=== PATIENT | female | born 1940 | race Caucasian/White ===

== ENCOUNTER 2017-01-11 12:38 | Inpatient (IN) | payer MEDICARE, MEDICAID ==
[~2017-01-11] VITALS: Ht 162.6 cm; Wt 56.7 kg
[~2017-01-11 12:38] MED LIST: AMOX1TAB12 PO; ASPI-621 PO; GLYB1TAB12 PO; INSU100I28 SQ-INSULIN; METF500T PO
[2017-01-11] MEDS ORDERED: SODIUM CHLORIDE 0.9% 1,000ML IVBOLUS ONE ×2 (13:00→15:00)
[2017-01-11] MEDS ORDERED: SODIUM CHLORIDE FLUSH 10ML SYR IVF ONE (13:00)
[2017-01-11] MEDS ORDERED: PLEASE ENTER HEIGHT AND WEIGHT MC SCH (13:00)
[2017-01-11 14:14] LABS: ASPARTATE AMINO TRANSFERASE 5 U/L (15-37); BLOOD UREA NITROGEN 26 mg/dL (7-18)
[2017-01-11 14:21] LABS: IS PT STATUS REG ER OR PRE ER? YES
[2017-01-11] MEDS ORDERED: INSULIN REGULAR 100 UNITS/ML, 3ML VIAL ONE (14:46)
[2017-01-11] MEDS ORDERED: SODIUM CHLORIDE 0.9% 1,000 ML IV ONE (14:51)
[2017-01-11] MEDS ORDERED: SODIUM CHLORIDE FLUSH 10ML SYR IVF PRN (15:00)
[2017-01-11] MEDS ORDERED: morphine SULFATE 10 MG/ML, 1ML IVPush PRN (16:00)
[2017-01-11] MEDS ORDERED: ONDANSETRON 2MG/ML, 2ML IVPush PRN (16:00)
[2017-01-11] MEDS ORDERED: POLYETHYLENE GLYCOL 17 GM PACKET PO PRN (16:00)
[2017-01-11] MEDS ORDERED: hydrALAzine 20 MG/ML, 1ML IVPush PRN (16:00)
[2017-01-11] MEDS ORDERED: ENALAPRILAT 1.25 MG/ML, 2ML IVPush PRN (16:00)
[2017-01-11] MEDS ORDERED: INSULIN REGULAR 100 UNITS/ML, 3ML VIAL SQ-INSULIN SCH (16:00)
[2017-01-11] MEDS ORDERED: HEPARIN 5,000 UNITS/ML, 1ML ONE (16:42)
[2017-01-11] MEDS: HEPARIN 5,000 UNITS/ML, 1ML SQ SCH (16:46)
[2017-01-11 18:00] VITALS: BP 125/76
[2017-01-11] MEDS: SODIUM CHLORIDE 0.9% 1,000 ML IV SCH (18:22)
[2017-01-11 19:10] VITALS: BP 124/69
[2017-01-11] MEDS ORDERED: PNEUMOCOCCAL 23 VACCINE IM-VACC ONE (19:30)
[2017-01-11] MEDS: INSULIN DETEMIR 100 UNITS/ML, PEN SQ-INSULIN SCH (20:50)
[2017-01-11] MEDS: INSULIN ASPART 100 UNITS/ML, PEN SQ-INSULIN SCH ×2 (20:50→20:55)
[2017-01-12] MEDS: HEPARIN 5,000 UNITS/ML, 1ML SQ SCH ×3 (00:33→15:59)
[2017-01-12] MEDS: SODIUM CHLORIDE 0.9% 1,000 ML IV SCH ×3 (00:35→15:59)
[2017-01-12] MEDS: INSULIN DETEMIR 100 UNITS/ML, PEN SQ-INSULIN SCH ×2 (04:30→16:03)
[2017-01-12 04:51] VITALS: BP 99/66
[2017-01-12 05:16] LABS: BLOOD UREA NITROGEN 17 mg/dL (7-18)
[2017-01-12 05:19] LABS: ASPARTATE AMINO TRANSFERASE 14 U/L (15-37)
[2017-01-12 06:50] VITALS: BP 115/67
[2017-01-12] MEDS: SENNA/DOCUSATE TABLET PO SCH (09:20)
[2017-01-12] MEDS: ASPIRIN 81 MG TABLET EC PO SCH (09:20)
[2017-01-12] MEDS: INSULIN ASPART 100 UNITS/ML, PEN SQ-INSULIN SCH ×4 (09:21→21:40)
[2017-01-12] MEDS: CEPHALEXIN 250 MG CAPSULE PO SCH ×3 (11:08→21:36)
[2017-01-12 14:27] VITALS: BP 144/71
[2017-01-12] MEDS ORDERED: INSULIN DETEMIR 100 UNITS/ML, PEN SQ-INSULIN SCH (16:30)
[2017-01-12 19:45] VITALS: BP 150/68
[2017-01-13] MEDS: HEPARIN 5,000 UNITS/ML, 1ML SQ SCH ×3 (00:16→17:37)
[2017-01-13 01:40] VITALS: BP 133/56
[2017-01-13] MEDS: CEPHALEXIN 250 MG CAPSULE PO SCH ×4 (05:03→23:45)
[2017-01-13] MEDS: INSULIN DETEMIR 100 UNITS/ML, PEN SQ-INSULIN SCH ×2 (05:04→17:40)
[2017-01-13 05:30] LABS: BLOOD UREA NITROGEN 10 mg/dL (7-18)
[2017-01-13] MEDS: ASPIRIN 81 MG TABLET EC PO SCH (07:56)
[2017-01-13] MEDS: SENNA/DOCUSATE TABLET PO SCH (07:57)
[2017-01-13 08:00] VITALS: BP 149/79
[2017-01-13] MEDS: INSULIN ASPART 100 UNITS/ML, PEN SQ-INSULIN SCH ×4 (08:02→21:26)
[2017-01-13 14:00] VITALS: BP 147/74
[2017-01-13 19:52] VITALS: BP 147/87
[2017-01-13 21:19] VITALS: BP 149/82
[2017-01-13] MEDS: metFORMIN 500 MG TABLET PO SCH (21:24)
[2017-01-14] MEDS: HEPARIN 5,000 UNITS/ML, 1ML SQ SCH ×3 (02:52→16:42)
[2017-01-14] MEDS: INSULIN DETEMIR 100 UNITS/ML, PEN SQ-INSULIN SCH ×2 (04:29→16:42)
[2017-01-14] MEDS: CEPHALEXIN 250 MG CAPSULE PO SCH ×3 (05:17→16:41)
[2017-01-14 06:04] LABS: BLOOD UREA NITROGEN 13 mg/dL (7-18)
[2017-01-14 07:20] VITALS: BP 152/76
[2017-01-14] MEDS: INSULIN ASPART 100 UNITS/ML, PEN SQ-INSULIN SCH ×4 (08:38→23:07)
[2017-01-14] MEDS: metFORMIN 500 MG TABLET PO SCH ×2 (08:39→16:41)
[2017-01-14] MEDS: ASPIRIN 81 MG TABLET EC PO SCH (08:39)
[2017-01-14] MEDS: SENNA/DOCUSATE TABLET PO SCH (08:39)
[2017-01-14 12:38] VITALS: BP 129/71
[2017-01-14 19:28] VITALS: BP 134/65
[2017-01-15] MEDS: CEPHALEXIN 250 MG CAPSULE PO SCH ×4 (00:14→17:25)
[2017-01-15 01:19] VITALS: BP 141/73
[2017-01-15] MEDS: HEPARIN 5,000 UNITS/ML, 1ML SQ SCH ×3 (01:24→17:26)
[2017-01-15] MEDS: INSULIN DETEMIR 100 UNITS/ML, PEN SQ-INSULIN SCH ×2 (04:58→16:30)
[2017-01-15 07:39] VITALS: BP 121/62
[2017-01-15] MEDS: SENNA/DOCUSATE TABLET PO SCH (09:00)
[2017-01-15] MEDS: INSULIN ASPART 100 UNITS/ML, PEN SQ-INSULIN SCH ×4 (09:31→20:37)
[2017-01-15] MEDS: ASPIRIN 81 MG TABLET EC PO SCH (09:31)
[2017-01-15] MEDS: metFORMIN 500 MG TABLET PO SCH ×2 (09:31→17:25)
[2017-01-15] MEDS ORDERED: INSULIN DETEMIR 100 UNITS/ML, PEN SQ-INSULIN ONE (12:30)
[2017-01-15 14:11] VITALS: BP 128/73
[2017-01-15 19:04] VITALS: BP 127/74
[2017-01-16] MEDS: CEPHALEXIN 250 MG CAPSULE PO SCH ×4 (00:05→17:18)
[2017-01-16 02:38] VITALS: BP 128/76
[2017-01-16] MEDS: HEPARIN 5,000 UNITS/ML, 1ML SQ SCH ×3 (05:38→22:07)
[2017-01-16] MEDS: INSULIN DETEMIR 100 UNITS/ML, PEN SQ-INSULIN SCH ×2 (05:38→14:25)
[2017-01-16 05:55] LABS: BLOOD UREA NITROGEN 19 mg/dL (7-18)
[2017-01-16 07:42] VITALS: BP 136/75
[2017-01-16] MEDS: ASPIRIN 81 MG TABLET EC PO SCH (08:38)
[2017-01-16] MEDS: SENNA/DOCUSATE TABLET PO SCH (08:38)
[2017-01-16] MEDS: metFORMIN 500 MG TABLET PO SCH ×2 (08:39→17:19)
[2017-01-16] MEDS: INSULIN ASPART 100 UNITS/ML, PEN SQ-INSULIN SCH ×4 (08:39→22:09)
[2017-01-16 12:56] VITALS: BP 143/79
[2017-01-16 20:16] VITALS: BP 151/83
[2017-01-17] MEDS: CEPHALEXIN 250 MG CAPSULE PO SCH ×4 (01:01→17:03)
[2017-01-17 02:33] VITALS: BP 148/77
[2017-01-17] MEDS: INSULIN DETEMIR 100 UNITS/ML, PEN SQ-INSULIN SCH ×2 (04:40→16:00)
[2017-01-17] MEDS: HEPARIN 5,000 UNITS/ML, 1ML SQ SCH ×2 (05:50→17:03)
[2017-01-17] MEDS: INSULIN ASPART 100 UNITS/ML, PEN SQ-INSULIN SCH ×4 (07:00→20:30)
[2017-01-17 07:27] VITALS: BP 147/81
[2017-01-17] MEDS: SENNA/DOCUSATE TABLET PO SCH (08:25)
[2017-01-17] MEDS: metFORMIN 500 MG TABLET PO SCH ×2 (08:25→17:03)
[2017-01-17] MEDS: ASPIRIN 81 MG TABLET EC PO SCH (08:25)
[2017-01-17] MEDS: OXYcodone IR 5MG TABLET PO PRN (11:49)
[2017-01-17] MEDS ORDERED: MAGNESIUM HYDROXIDE 8%, 30ML UDC PO PRN (13:00)
[2017-01-17 13:48] VITALS: BP_SYST 128; BP_SYST 147; BP_DIAS 81; BP_DIAS 83
[2017-01-17 19:10] VITALS: BP 121/73
[2017-01-18] MEDS: HEPARIN 5,000 UNITS/ML, 1ML SQ SCH ×3 (00:20→16:45)
[2017-01-18] MEDS: CEPHALEXIN 250 MG CAPSULE PO SCH ×4 (00:20→20:44)
[2017-01-18 00:38] VITALS: BP 108/67
[2017-01-18] MEDS: SENNA/DOCUSATE TABLET PO SCH (08:11)
[2017-01-18] MEDS: OXYcodone IR 5MG TABLET PO PRN ×2 (08:11→16:54)
[2017-01-18] MEDS: metFORMIN 500 MG TABLET PO SCH ×2 (08:11→16:43)
[2017-01-18] MEDS: ASPIRIN 81 MG TABLET EC PO SCH (08:11)
[2017-01-18] MEDS: INSULIN ASPART 100 UNITS/ML, PEN SQ-INSULIN SCH ×4 (08:12→20:51)
[2017-01-18] MEDS: INSULIN DETEMIR 100 UNITS/ML, PEN SQ-INSULIN SCH ×2 (08:12→19:00)
[2017-01-18 08:20] VITALS: BP 138/82
[2017-01-18] MEDS ORDERED: MAALOX/HYOSCYAMINE/LIDOCAINE 45 ML BOTTLE PO ONE ×2 (11:30→12:30)
[2017-01-18] MEDS ORDERED: CALCIUM CARBONATE 500 MG TAB.CHEW PO PRN (11:30)
[2017-01-18 14:30] VITALS: BP 137/77
[2017-01-18] MEDS: BISACODYL 10 MG SUPP PR PRN (16:54)
[2017-01-18 19:33] VITALS: BP 118/65
[2017-01-18] MEDS ORDERED: ENALAPRILAT 1.25 MG/ML, 2ML IVPush PRN (19:53)
[2017-01-18] MEDS ORDERED: OXYcodone IR 5MG TABLET PO PRN (21:00)
[2017-01-19 00:52] VITALS: BP 117/70
[2017-01-19] MEDS: HEPARIN 5,000 UNITS/ML, 1ML SQ SCH ×3 (00:58→17:28)
[2017-01-19] MEDS: CEPHALEXIN 250 MG CAPSULE PO SCH ×2 (00:58→09:28)
[2017-01-19 05:51] LABS: BLOOD UREA NITROGEN 23 mg/dL (7-18)
[2017-01-19] MEDS: INSULIN DETEMIR 100 UNITS/ML, PEN SQ-INSULIN SCH ×3 (07:00→21:00)
[2017-01-19] MEDS: INSULIN ASPART 100 UNITS/ML, PEN SQ-INSULIN SCH ×4 (07:00→21:00)
[2017-01-19 07:16] VITALS: BP 105/63
[2017-01-19] MEDS: BISACODYL 10 MG SUPP PR SCH (09:00)
[2017-01-19] MEDS: metFORMIN 500 MG TABLET PO SCH ×2 (09:29→17:27)
[2017-01-19] MEDS: SENNA/DOCUSATE TABLET PO SCH (09:29)
[2017-01-19] MEDS: ASPIRIN 81 MG TABLET EC PO SCH (09:29)
[2017-01-19] MEDS ORDERED: INSULIN DETEMIR 100 UNITS/ML, PEN SQ-INSULIN SCH (14:00)
[2017-01-19 15:25] VITALS: BP 123/74
[2017-01-19] MEDS: BISACODYL 10 MG SUPP PR PRN (17:34)
[2017-01-19 19:33] VITALS: BP 112/68
[2017-01-20 01:19] VITALS: BP 101/59
[2017-01-20] MEDS: INSULIN ASPART 100 UNITS/ML, PEN SQ-INSULIN SCH ×4 (07:00→21:00)
[2017-01-20 07:36] VITALS: BP 127/82
[2017-01-20] MEDS: BISACODYL 10 MG SUPP PR SCH ×2 (09:00→11:54)
[2017-01-20] MEDS: SENNA/DOCUSATE TABLET PO SCH (09:48)
[2017-01-20] MEDS: HEPARIN 5,000 UNITS/ML, 1ML SQ SCH ×3 (09:48→17:39)
[2017-01-20] MEDS: metFORMIN 500 MG TABLET PO SCH ×2 (09:48→17:39)
[2017-01-20] MEDS: ASPIRIN 81 MG TABLET EC PO SCH (09:48)
[2017-01-20] MEDS: INSULIN DETEMIR 100 UNITS/ML, PEN SQ-INSULIN SCH ×2 (09:49→22:05)
[2017-01-20 13:26] VITALS: BP 128/75
[2017-01-20 19:50] VITALS: BP 114/63
[2017-01-21 01:51] VITALS: BP 109/60
[2017-01-21] MEDS: HEPARIN 5,000 UNITS/ML, 1ML SQ SCH ×3 (02:00→18:00)
[2017-01-21] MEDS: INSULIN ASPART 100 UNITS/ML, PEN SQ-INSULIN SCH ×4 (07:00→20:52)
[2017-01-21 07:25] VITALS: BP 129/71
[2017-01-21] MEDS: BISACODYL 10 MG SUPP PR SCH (09:00)
[2017-01-21] MEDS: metFORMIN 500 MG TABLET PO SCH ×2 (09:17→17:00)
[2017-01-21] MEDS: ASPIRIN 81 MG TABLET EC PO SCH (09:17)
[2017-01-21] MEDS: SENNA/DOCUSATE TABLET PO SCH (09:18)
[2017-01-21] MEDS: INSULIN DETEMIR 100 UNITS/ML, PEN SQ-INSULIN SCH ×2 (09:22→20:59)
[2017-01-21 14:16] VITALS: BP 126/79
[2017-01-21 19:13] VITALS: BP 134/82
[2017-01-22 01:32] VITALS: BP 127/78
[2017-01-22] MEDS: HEPARIN 5,000 UNITS/ML, 1ML SQ SCH ×3 (02:00→17:53)
[2017-01-22] MEDS: INSULIN ASPART 100 UNITS/ML, PEN SQ-INSULIN SCH ×4 (07:00→21:00)
[2017-01-22 07:17] VITALS: BP 118/72
[2017-01-22] MEDS: BISACODYL 10 MG SUPP PR SCH (09:00)
[2017-01-22] MEDS: SENNA/DOCUSATE TABLET PO SCH (09:21)
[2017-01-22] MEDS: metFORMIN 500 MG TABLET PO SCH ×2 (09:21→17:53)
[2017-01-22] MEDS: ASPIRIN 81 MG TABLET EC PO SCH (09:21)
[2017-01-22] MEDS: INSULIN DETEMIR 100 UNITS/ML, PEN SQ-INSULIN SCH ×2 (09:23→21:00)
[2017-01-22 13:50] VITALS: BP 171/87
[2017-01-22 13:51] VITALS: BP 129/74
[2017-01-22 19:01] VITALS: BP 122/71
[2017-01-23] MEDS: INSULIN ASPART 100 UNITS/ML, PEN SQ-INSULIN SCH ×5 (00:30→20:34)
[2017-01-23] MEDS: HEPARIN 5,000 UNITS/ML, 1ML SQ SCH ×3 (01:55→17:57)
[2017-01-23 02:49] VITALS: BP 117/72
[2017-01-23 04:49] LABS: BLOOD UREA NITROGEN 25 mg/dL (7-18)
[2017-01-23 07:06] VITALS: BP 138/79
[2017-01-23 07:44] VITALS: BP 128/83
[2017-01-23] MEDS: INSULIN DETEMIR 100 UNITS/ML, PEN SQ-INSULIN SCH ×2 (09:00→20:33)
[2017-01-23] MEDS: BISACODYL 10 MG SUPP PR SCH (09:00)
[2017-01-23 13:27] VITALS: BP 120/70
[2017-01-23] MEDS: metFORMIN 500 MG TABLET PO SCH ×2 (13:52→19:36)
[2017-01-23] MEDS: ASPIRIN 81 MG TABLET EC PO SCH (13:53)
[2017-01-23] MEDS: SENNA/DOCUSATE TABLET PO SCH (13:53)
[2017-01-23 19:25] VITALS: BP 127/66
[2017-01-23] MEDS ORDERED: ONDANSETRON ODT 4 MG ONE (19:35)
[2017-01-23] MEDS: ONDANSETRON ODT 4 MG PO PRN (19:39)
[2017-01-24] MEDS: HEPARIN 5,000 UNITS/ML, 1ML SQ SCH ×3 (01:07→17:22)
[2017-01-24 01:38] VITALS: BP 104/64
[2017-01-24 07:00] VITALS: BP 121/76
[2017-01-24] MEDS: INSULIN ASPART 100 UNITS/ML, PEN SQ-INSULIN SCH ×4 (07:00→20:30)
[2017-01-24] MEDS: metFORMIN 500 MG TABLET PO SCH ×2 (08:00→17:20)
[2017-01-24] MEDS: ASPIRIN 81 MG TABLET EC PO SCH (09:00)
[2017-01-24] MEDS: BISACODYL 10 MG SUPP PR SCH (09:00)
[2017-01-24] MEDS: SENNA/DOCUSATE TABLET PO SCH (09:00)
[2017-01-24] MEDS: INSULIN DETEMIR 100 UNITS/ML, PEN SQ-INSULIN SCH ×2 (09:00→20:37)
[2017-01-24 13:15] VITALS: BP 133/82
[2017-01-24 19:38] VITALS: BP 123/80
[2017-01-25 01:24] VITALS: BP 117/72
[2017-01-25] MEDS: HEPARIN 5,000 UNITS/ML, 1ML SQ SCH ×3 (01:31→18:00)
[2017-01-25 07:03] VITALS: BP 117/68
[2017-01-25] MEDS: INSULIN DETEMIR 100 UNITS/ML, PEN SQ-INSULIN SCH ×2 (08:54→20:40)
[2017-01-25] MEDS: INSULIN ASPART 100 UNITS/ML, PEN SQ-INSULIN SCH ×5 (08:55→20:40)
[2017-01-25] MEDS: SENNA/DOCUSATE TABLET PO SCH (08:55)
[2017-01-25] MEDS: ASPIRIN 81 MG TABLET EC PO SCH (08:55)
[2017-01-25] MEDS: metFORMIN 500 MG TABLET PO SCH ×2 (08:56→16:58)
[2017-01-25] MEDS: BISACODYL 10 MG SUPP PR SCH (08:57)
[2017-01-25 12:25] VITALS: BP 121/69
[2017-01-25 19:02] VITALS: BP 123/74
[2017-01-26 01:08] VITALS: BP 130/74
[2017-01-26] MEDS: HEPARIN 5,000 UNITS/ML, 1ML SQ SCH ×3 (01:54→16:19)
[2017-01-26 05:57] LABS: ASPARTATE AMINO TRANSFERASE 11 U/L (15-37); BLOOD UREA NITROGEN 21 mg/dL (7-18)
[2017-01-26] MEDS: INSULIN ASPART 100 UNITS/ML, PEN SQ-INSULIN SCH ×4 (07:00→20:06)
[2017-01-26 07:50] VITALS: BP 160/78
[2017-01-26] MEDS: BISACODYL 10 MG SUPP PR SCH (08:52)
[2017-01-26] MEDS: SENNA/DOCUSATE TABLET PO SCH (09:00)
[2017-01-26] MEDS: ASPIRIN 81 MG TABLET EC PO SCH (09:23)
[2017-01-26] MEDS: metFORMIN 500 MG TABLET PO SCH ×2 (09:23→16:57)
[2017-01-26] MEDS: INSULIN DETEMIR 100 UNITS/ML, PEN SQ-INSULIN SCH ×2 (09:23→20:06)
[2017-01-26 13:50] VITALS: BP 137/73
[2017-01-26] MEDS ORDERED: ONDANSETRON 2MG/ML, 2ML IVPush PRN (19:00)
[2017-01-26] MEDS ORDERED: BISACODYL 10 MG SUPP PR PRN ×2 (19:00→20:00)
[2017-01-26 19:41] VITALS: BP 136/74
[2017-01-26] MEDS ORDERED: MAGNESIUM HYDROXIDE 8%, 30ML UDC PO PRN (20:00)
[2017-01-26] MEDS ORDERED: POLYETHYLENE GLYCOL 17 GM PACKET PO PRN (20:00)
[2017-01-26] MEDS: ONDANSETRON ODT 4 MG PO PRN (20:06)
[2017-01-27 01:26] VITALS: BP 128/68
[2017-01-27] MEDS: HEPARIN 5,000 UNITS/ML, 1ML SQ SCH ×2 (01:50→10:00)
[2017-01-27] MEDS: INSULIN ASPART 100 UNITS/ML, PEN SQ-INSULIN SCH (07:00)
[2017-01-27 08:09] VITALS: BP 113/72
[2017-01-27] MEDS: BISACODYL 10 MG SUPP PR SCH (09:00)
[2017-01-27] MEDS ORDERED: ASPIRIN 81 MG TABLET EC PO SCH (09:00)
[2017-01-27] MEDS: SENNA/DOCUSATE TABLET PO SCH (09:22)
[2017-01-27] MEDS: metFORMIN 500 MG TABLET PO SCH ×2 (09:22→17:46)
[2017-01-27] MEDS: INSULIN DETEMIR 100 UNITS/ML, PEN SQ-INSULIN SCH (09:23)
[2017-01-27 13:53] VITALS: BP 110/69
[2017-01-27] MEDS ORDERED: INSU100I28 SQ-INSULIN (14:41)
== END 2017-01-27 18:30 | disposition home or self-care (01) | DRG 682 ==
LOC: ED 13:27 → EDIP 15:27 → 5SO 17:46 → 3NE 01-14 17:55
PROVIDERS: ADMIT Internal Medicine; ATTEND Internal Medicine
PROC: 0T9B70Z Drainage of Bladder with Drainage Device, Via Natural or Artificial Opening (ICD-10-PCS; principal; 2017-01-18)
DX: N17.0 Acute kidney failure with tubular necrosis (principal); E11.00 Type 2 diabetes mellitus with hyperosmolarity without nonketotic hyperglycemic-hyperosmolar coma (NKHHC); N39.0 Urinary tract infection, site not specified; E87.2 Acidosis; R45.851 Suicidal ideations; E11.65 Type 2 diabetes mellitus with hyperglycemia; F41.9 Anxiety disorder, unspecified; R62.7 Adult failure to thrive; F03.90 Unspecified dementia, unspecified severity, without behavioral disturbance, psychotic disturbance, mood disturbance, and anxiety; F09 Unspecified mental disorder due to known physiological condition; I00 Rheumatic fever without heart involvement; E11.51 Type 2 diabetes mellitus with diabetic peripheral angiopathy without gangrene; I10 Essential (primary) hypertension; B95.61 Methicillin susceptible Staphylococcus aureus infection as the cause of diseases classified elsewhere; J44.9 Chronic obstructive pulmonary disease, unspecified; R29.6 Repeated falls; Z79.4 Long term (current) use of insulin; Z79.84 Long term (current) use of oral hypoglycemic drugs; Z83.3 Family history of diabetes mellitus; Z85.3 Personal history of malignant neoplasm of breast; Z86.73 Personal history of transient ischemic attack (TIA), and cerebral infarction without residual deficits; Z87.442 Personal history of urinary calculi; Z91.14 Patient's other noncompliance with medication regimen; Z91.81 History of falling; Z90.49 Acquired absence of other specified parts of digestive tract; Z90.89 Acquired absence of other organs; Z23 Encounter for immunization
CPT/HCPCS: 36415; 70450; 71010; 74000; 80048; 80053; 81001; 82010; 82040; 82800; 82962; 83036; 83605; 83735; 84145; 84439; 84443; 84484; 85025; 85651; 87040; 87077; 87086; 87186; 90732; 93005; 96360; 96361; 96372; J1644; J1815; J2405; Q0162; 92523-GN; J7030

== ENCOUNTER 2017-03-04 11:28 | Emergency (ER) | payer MEDICARE, MEDICAID ==
[~2017-03-04] VITALS: Ht 162.6 cm; Wt 55.0 kg
[2017-03-04 11:30] VITALS: BP 130/76
== END 2017-03-04 13:21 | disposition home or self-care (01) ==
LOC: ED 13:00
DX: S90.932A Unspecified superficial injury of left great toe, initial encounter (principal); L03.032 Cellulitis of left toe; J44.9 Chronic obstructive pulmonary disease, unspecified; I10 Essential (primary) hypertension; E11.9 Type 2 diabetes mellitus without complications; Z86.73 Personal history of transient ischemic attack (TIA), and cerebral infarction without residual deficits; X58.XXXA Exposure to other specified factors, initial encounter; Y93.89 Activity, other specified; Y92.89 Other specified places as the place of occurrence of the external cause; Y99.9 Unspecified external cause status
CPT/HCPCS: 82962; 99284

== ENCOUNTER 2017-06-16 06:35 | Emergency (ER) | payer MEDICARE, MEDICAID ==
[~2017-06-16] VITALS: Ht 162.6 cm; Wt 60.0 kg
[2017-06-16] MEDS ORDERED: KETOROLAC 30 MG/1 ML IM ONE (07:00)
[2017-06-16] MEDS ORDERED: KETOROLAC 30 MG/1 ML ONE (07:03)
[2017-06-16 08:34] VITALS: BP 112/68
== END 2017-06-16 08:37 | disposition home or self-care (01) ==
LOC: ED 08:31
DX: S29.011A Strain of muscle and tendon of front wall of thorax, initial encounter (principal); J44.9 Chronic obstructive pulmonary disease, unspecified; E11.65 Type 2 diabetes mellitus with hyperglycemia; Z86.73 Personal history of transient ischemic attack (TIA), and cerebral infarction without residual deficits; I10 Essential (primary) hypertension; W19.XXXA Unspecified fall, initial encounter; Y93.89 Activity, other specified; Y92.009 Unspecified place in unspecified non-institutional (private) residence as the place of occurrence of the external cause; Y99.9 Unspecified external cause status
CPT/HCPCS: 71101; 93005; 96372; 99284; J1885

== ENCOUNTER 2017-07-07 13:12 | Emergency (ER) | payer MEDICARE, MEDICAID ==
[~2017-07-07] VITALS: Ht 165.1 cm; Wt 53.9 kg
[2017-07-07] MEDS ORDERED: SODIUM CHLORIDE FLUSH 10ML SYR IVF ONE (14:00)
[2017-07-07] MEDS ORDERED: SODIUM CHLORIDE 0.9% 1,000ML IVBOLUS ONE (14:00)
[2017-07-07 14:33] LABS: HEMATOCRIT 40.2 % (34.6-47.8); HEMOGLOBIN 13.8 g/dL (11.7-16.4); PH, VENOUS 7.482 pH (7.320-7.420); WHITE BLOOD COUNT 5.5 x10^3/uL (3.4-10)
[2017-07-07 14:44] LABS: ASPARTATE AMINO TRANSFERASE 11 U/L (15-37); BLOOD UREA NITROGEN 16 mg/dL (7-18)
[2017-07-07] MEDS ORDERED: ONDANSETRON ODT 4 MG ONE (18:59)
[2017-07-07] MEDS ORDERED: ONDANSETRON ODT 4 MG PO ONE (19:00)
[2017-07-07 19:02] VITALS: BP 166/70
== END 2017-07-07 19:19 | disposition home or self-care (01) ==
LOC: ED 17:28
DX: L03.032 Cellulitis of left toe (principal); E11.65 Type 2 diabetes mellitus with hyperglycemia; J44.9 Chronic obstructive pulmonary disease, unspecified; F03.90 Unspecified dementia, unspecified severity, without behavioral disturbance, psychotic disturbance, mood disturbance, and anxiety; Z90.49 Acquired absence of other specified parts of digestive tract
CPT/HCPCS: 36415; 73660; 80053; 82010; 82803; 85025; 96360; 96361; 99285; J7030; Q0162

== ENCOUNTER 2017-12-24 06:50 | Emergency (ER) | payer MEDICARE, MEDICAID ==
[~2017-12-24] VITALS: Ht 162.6 cm; Wt 52.0 kg
[~2017-12-24 06:50] MED LIST changes: +CEFD300C37 PO; +GLYB-135 PO; -GLYB1TAB12 PO
[2017-12-24 07:27] LABS: BASOPHILS # (AUTO) 0.01 x10^3/uL (0-0.1); BASOPHILS % (AUTO) 0 % (0-1); EOSINOPHILS % (AUTO) 2 % (1-7); LYMPHOCYTES # (AUTO) 1.15 x10^3/uL (1-3.4); LYMPHOCYTES % (AUTO) 25 % (22-44); MD NO; MEAN CORPUSCULAR HEMOGLOBIN 29.2 pg (27.0-34.8); MEAN CORPUSCULAR HGB CONC 33.7 g/dL (32.4-35.8); MEAN CORPUSCULAR VOLUME 86.5 fL (80-100); MEAN PLATELET VOLUME 6.8 fL (7.4-10.4); MONOCYTES % (AUTO) 6 % (2-9); NEUTROPHILS % (AUTO) 67 % (42-75); PLATELET COUNT 254 x10^3/uL (130-400); RED BLOOD COUNT 3.58 x10^6/uL (3.82-5.3); RED CELL DISTRIBUTION WIDTH 13.4 % (9.6-15.2)
[2017-12-24 07:38] LABS: ALANINE AMINOTRANSFERASE 9 U/L (12-78); ALBUMIN 2.8 g/dL (3.4-5.0); ANION GAP 12 mmol/L (5-15); CALCIUM 8.6 mg/dL (8.5-10.1); CHLORIDE 111 mmol/L (98-107); CREATININE 1.76 mg/dL (0.55-1.02)
[2017-12-24 07:41] LABS: ALKALINE PHOSPHATASE 95 U/L (45-117); BILIRUBIN,TOTAL 1.1 mg/dL (0.2-1.0); TOTAL PROTEIN 7.4 g/dL (6.4-8.2)
[2017-12-24] MEDS ORDERED: HYDROcodone/APAP 5/325 TABLET PO ONE (09:00)
[2017-12-24] MEDS ORDERED: HYDROcodone/APAP 5/325 TABLET ONE (09:48)
[2017-12-24 14:22] VITALS: BP 146/67
== END 2017-12-24 14:29 | disposition home or self-care (01) ==
LOC: ED 08:40
DX: S90.412A Abrasion, left great toe, initial encounter (principal); S90.411A Abrasion, right great toe, initial encounter; I10 Essential (primary) hypertension; J44.9 Chronic obstructive pulmonary disease, unspecified; Z86.73 Personal history of transient ischemic attack (TIA), and cerebral infarction without residual deficits; E11.40 Type 2 diabetes mellitus with diabetic neuropathy, unspecified; X58.XXXA Exposure to other specified factors, initial encounter; Y93.89 Activity, other specified; Y92.89 Other specified places as the place of occurrence of the external cause; Y99.8 Other external cause status
CPT/HCPCS: 36415; 80053; 85025; 93005; 99285

== ENCOUNTER 2017-12-27 10:27 | Inpatient (IN) | payer MEDICARE, MEDICAID ==
[~2017-12-27] VITALS: Ht 162.6 cm; Wt 62.8 kg
[2017-12-27] MEDS ORDERED: SODIUM CHLORIDE 0.9% 1,000 ML IV ONE (10:52)
[2017-12-27] MEDS ORDERED: ONDANSETRON 2MG/ML, 2ML IVPush ONE (11:00)
[2017-12-27] MEDS ORDERED: MORPHINE SULFATE 4 MG/ML, 1ML ONE ×2 (11:08→13:36)
[2017-12-27] MEDS ORDERED: ONDANSETRON ODT 4 MG ONE (11:08)
[2017-12-27 11:20] LABS: MEAN CORPUSCULAR HEMOGLOBIN 29.3 pg (27.0-34.8); MEAN CORPUSCULAR VOLUME 86.2 fL (80-100); MEAN PLATELET VOLUME 6.7 fL (7.4-10.4); PLATELET COUNT 302 x10^3/uL (130-400); RED BLOOD COUNT 3.73 x10^6/uL (3.82-5.3); RED CELL DISTRIBUTION WIDTH 13.5 % (9.6-15.2)
[2017-12-27] MEDS: MORPHINE SULFATE 4 MG/ML, 1ML IVPush PRN ×2 (11:22→13:52)
[2017-12-27 11:29] LABS: ALANINE AMINOTRANSFERASE 12 U/L (12-78); ALBUMIN 2.6 g/dL (3.4-5.0); ANION GAP 10 mmol/L (5-15); CALCIUM 8.6 mg/dL (8.5-10.1); CHLORIDE 109 mmol/L (98-107); CREATININE 2.36 mg/dL (0.55-1.02)
[2017-12-27] MEDS ORDERED: ONDANSETRON ODT 4 MG PO ONE (11:30)
[2017-12-27 11:33] LABS: ALKALINE PHOSPHATASE 106 U/L (45-117); TOTAL PROTEIN 7.7 g/dL (6.4-8.2); TROPONIN I < 0.015 ng/mL (0.000-0.045)
[2017-12-27 11:38] LABS: BASOPHILS % (AUTO) 0 % (0-1); EOSINOPHILS # (AUTO) 0.04 x10^3/uL (0-0.4); EOSINOPHILS % (AUTO) 1 % (1-7); LYMPHOCYTES # (AUTO) 0.69 x10^3/uL (1-3.4); LYMPHOCYTES % (AUTO) 12 % (22-44); MD SCAN; MONOCYTES # (AUTO) 0.28 x10^3/uL (0.2-0.8); MONOCYTES % (AUTO) 5 % (2-9); NEUTROPHILS % (AUTO) 83 % (42-75)
[2017-12-27] MEDS ORDERED: SODIUM CHLORIDE FLUSH 10ML SYR IVF PRN (12:30)
[2017-12-27 13:51] LABS: CULTURE INDICATED? YES; MICROSCOPIC INDICATED
[2017-12-27] MEDS ORDERED: ONDANSETRON ODT 4 MG PO PRN (14:30)
[2017-12-27] MEDS ORDERED: ACETAMINOPHEN 325 MG TABLET PO PRN (14:30)
[2017-12-27] MEDS ORDERED: CEFTRIAXONE PMX 1GM/50ML 50 ML ONE (15:15)
[2017-12-27] MEDS: CEFTRIAXONE PMX 1GM/50ML 50 ML IV SCH (15:17)
[2017-12-27 15:39] LABS: TROPONIN I < 0.015 ng/mL (0.000-0.045)
[2017-12-27 15:48] LABS: FREE T4 (FREE THYROXINE) 1.46 ng/dL (0.76-1.46); THYROID STIMULATING HORMONE 5.18 mIU/L (0.358-3.740)
[2017-12-27 17:35] VITALS: BP 162/82
[2017-12-27] MEDS: SODIUM CHLORIDE 0.9% 1,000 ML IV SCH (18:05)
[2017-12-27 20:46] VITALS: BP 114/79
[2017-12-27 22:13] LABS: HEMOGLOBIN A1C 7.8 % (4.2-6.3)
[2017-12-27] MEDS: INSULIN LISPRO 100 UNITS/ML, PEN SQ-INSULIN SCH (22:23)
[2017-12-28] MEDS: MORPHINE SULFATE 4 MG/ML, 1ML IVPush PRN ×2 (00:27→04:12)
[2017-12-28 00:41] VITALS: BP 134/66
[2017-12-28] MEDS: SODIUM CHLORIDE 0.9% 1,000 ML IV SCH ×2 (04:12→14:03)
[2017-12-28 05:49] LABS: BASOPHILS % (AUTO) 0 % (0-1); EOSINOPHILS # (AUTO) 0.04 x10^3/uL (0-0.4); EOSINOPHILS % (AUTO) 1 % (1-7); LYMPHOCYTES # (AUTO) 0.71 x10^3/uL (1-3.4); LYMPHOCYTES % (AUTO) 21 % (22-44); MD NO; MEAN CORPUSCULAR HEMOGLOBIN 28.8 pg (27.0-34.8); MEAN CORPUSCULAR VOLUME 87.3 fL (80-100); MEAN PLATELET VOLUME 6.6 fL (7.4-10.4); MONOCYTES # (AUTO) 0.13 x10^3/uL (0.2-0.8); MONOCYTES % (AUTO) 4 % (2-9); NEUTROPHILS # (AUTO) 2.55 x10^3/uL (1.8-6.8); NEUTROPHILS % (AUTO) 74 % (42-75); PLATELET COUNT 270 x10^3/uL (130-400); RED CELL DISTRIBUTION WIDTH 13.3 % (9.6-15.2)
[2017-12-28 05:51] LABS: ANION GAP 9 mmol/L (5-15); CALCIUM 8.3 mg/dL (8.5-10.1); CHLORIDE 109 mmol/L (98-107)
[2017-12-28 05:54] LABS: % IRON SATURATION 10 % (20-55); ALANINE AMINOTRANSFERASE 9 U/L (12-78); BILIRUBIN,TOTAL 0.6 mg/dL (0.2-1.0); IRON LEVEL 13 mcg/dL (50-170); TOTAL IRON BINDING CAPACITY 129 mcg/dL (250-450); TOTAL PROTEIN 6.5 g/dL (6.4-8.2); TROPONIN I < 0.015 ng/mL (0.000-0.045)
[2017-12-28 05:55] LABS: ALKALINE PHOSPHATASE 83 U/L (45-117)
[2017-12-28 06:54] VITALS: BP 162/69
[2017-12-28] MEDS: INSULIN LISPRO 100 UNITS/ML, PEN SQ-INSULIN SCH ×4 (08:50→20:26)
[2017-12-28] MEDS: ENOXAPARIN 30 MG/0.3 ML SQ SCH (08:50)
[2017-12-28] MEDS: CEFTRIAXONE PMX 1GM/50ML 50 ML IV SCH (14:03)
[2017-12-28 14:49] VITALS: BP 146/67
[2017-12-28] MEDS: FERROUS SULFATE 325 MG TABLET PO SCH (17:14)
[2017-12-28 19:10] VITALS: BP 156/68
[2017-12-29 01:01] VITALS: BP 135/70
[2017-12-29] MEDS: ONDANSETRON 2MG/ML, 2ML IVPush PRN ×2 (02:27→12:18)
[2017-12-29] MEDS: INSULIN LISPRO 100 UNITS/ML, PEN SQ-INSULIN SCH ×4 (07:00→21:00)
[2017-12-29 07:10] VITALS: BP 145/64
[2017-12-29] MEDS: ENOXAPARIN 30 MG/0.3 ML SQ SCH (08:57)
[2017-12-29] MEDS: FERROUS SULFATE 325 MG TABLET PO SCH ×3 (08:57→17:14)
[2017-12-29] MEDS: SODIUM CHLORIDE 0.9% 1,000 ML IV SCH ×3 (08:57→21:00)
[2017-12-29 12:43] VITALS: BP 155/77
[2017-12-29] MEDS: CEFTRIAXONE PMX 1GM/50ML 50 ML IV SCH (14:15)
[2017-12-29 20:00] VITALS: BP 154/81
[2017-12-30 01:36] VITALS: BP 148/77
[2017-12-30] MEDS: INSULIN LISPRO 100 UNITS/ML, PEN SQ-INSULIN SCH ×4 (07:00→21:00)
[2017-12-30 07:27] VITALS: BP 162/84
[2017-12-30] MEDS ORDERED: REGADENOSON 0.4 MG/5 ML SYRINGE ONE (07:59)
[2017-12-30] MEDS: FERROUS SULFATE 325 MG TABLET PO SCH ×3 (08:00→16:41)
[2017-12-30] MEDS: ENOXAPARIN 30 MG/0.3 ML SQ SCH (09:00)
[2017-12-30] MEDS: SODIUM CHLORIDE 0.9% 1,000 ML IV SCH (12:49)
[2017-12-30 13:07] VITALS: BP 129/92
[2017-12-30] MEDS: LORazepam 2 MG/ML, 1ML IVPush PRN (14:07)
[2017-12-30] MEDS: CEFTRIAXONE PMX 1GM/50ML 50 ML IV SCH (15:13)
[2017-12-30 21:01] VITALS: BP 175/71
[2017-12-31] MEDS: SODIUM CHLORIDE 0.9% 1,000 ML IV SCH ×3 (00:28→21:04)
[2017-12-31 02:03] VITALS: BP 154/76
[2017-12-31] MEDS: INSULIN LISPRO 100 UNITS/ML, PEN SQ-INSULIN SCH ×4 (07:00→20:35)
[2017-12-31 08:59] VITALS: BP 162/81
[2017-12-31] MEDS: ENOXAPARIN 30 MG/0.3 ML SQ SCH (09:00)
[2017-12-31] MEDS: AZITHROMYCIN 500 MG in SODIUM CHLORIDE 0.9% 250 ML IV SCH (10:35)
[2017-12-31] MEDS: ASPIRIN 81 MG TABLET EC PO SCH (10:36)
[2017-12-31] MEDS: FERROUS SULFATE 325 MG TABLET PO SCH ×3 (10:36→17:56)
[2017-12-31 15:19] LABS: TOTAL PROTEIN 5.7 g/dL (6.4-8.2)
[2017-12-31] MEDS ORDERED: LIDOCAINE 2%, 20ML ONE (15:50)
[2017-12-31] MEDS: CEFTRIAXONE PMX 1GM/50ML 50 ML IV SCH (16:13)
[2017-12-31 17:59] VITALS: BP 117/51
[2017-12-31 20:57] VITALS: BP 153/74
[2017-12-31] MEDS: ATORVASTATIN 20 MG TABLET PO SCH (21:04)
[2017-12-31] MEDS: MORPHINE SULFATE 4 MG/ML, 1ML IVPush PRN (23:23)
[2018-01-01 01:52] VITALS: BP 147/73
[2018-01-01 05:45] LABS: BASOPHILS # (AUTO) 0.01 x10^3/uL (0-0.1); BASOPHILS % (AUTO) 0 % (0-1); EOSINOPHILS % (AUTO) 3 % (1-7); LYMPHOCYTES % (AUTO) 23 % (22-44); MD NO; MEAN CORPUSCULAR HEMOGLOBIN 28.9 pg (27.0-34.8); MEAN CORPUSCULAR HGB CONC 34.1 g/dL (32.4-35.8); MEAN CORPUSCULAR VOLUME 84.8 fL (80-100); MEAN PLATELET VOLUME 6.4 fL (7.4-10.4); MONOCYTES # (AUTO) 0.23 x10^3/uL (0.2-0.8); MONOCYTES % (AUTO) 8 % (2-9); NEUTROPHILS # (AUTO) 2.06 x10^3/uL (1.8-6.8); NEUTROPHILS % (AUTO) 66 % (42-75); PLATELET COUNT 207 x10^3/uL (130-400); RED BLOOD COUNT 2.57 x10^6/uL (3.82-5.3); RED CELL DISTRIBUTION WIDTH 13.6 % (9.6-15.2)
[2018-01-01 05:56] LABS: ANION GAP 10 mmol/L (5-15); CALCIUM 7.7 mg/dL (8.5-10.1); CHLORIDE 114 mmol/L (98-107)
[2018-01-01 06:00] LABS: CHOL/HDL RATIO 3.2; CHOLESTEROL, TOTAL 79 mg/dL (140-239); CREATININE 1.64 mg/dL (0.55-1.02); HDL CHOL % 32 % (28-40); HDL CHOLESTEROL (DIRECT) 25 mg/dL (40-60); LDL CHOLESTEROL,CALCULATED 39 mg/dL (54-169); LDL/HDL RATIO 1.6 (0.5-3.0); TRIGLYCERIDES 77 mg/dL (50-200); VLDL CHOLESTEROL 15 mg/dL (0-25)
[2018-01-01] MEDS: SODIUM CHLORIDE 0.9% 1,000 ML IV SCH ×2 (06:00→16:37)
[2018-01-01] MEDS: ASPIRIN 81 MG TABLET EC PO SCH (06:00)
[2018-01-01] MEDS: INSULIN LISPRO 100 UNITS/ML, PEN SQ-INSULIN SCH ×4 (07:00→19:42)
[2018-01-01 07:10] VITALS: BP 159/74
[2018-01-01] MEDS: FERROUS SULFATE 325 MG TABLET PO SCH ×3 (08:00→16:34)
[2018-01-01] MEDS: ENOXAPARIN 30 MG/0.3 ML SQ SCH (09:00)
[2018-01-01] MEDS: AZITHROMYCIN 500 MG in SODIUM CHLORIDE 0.9% 250 ML IV SCH (12:42)
[2018-01-01 12:50] VITALS: BP 174/76
[2018-01-01] MEDS: CEFTRIAXONE PMX 1GM/50ML 50 ML IV SCH (16:37)
[2018-01-01 19:22] VITALS: BP_SYST 172; BP_SYST 177; BP_DIAS 74; BP_DIAS 80
[2018-01-01] MEDS: hydrALAzine 20 MG/ML, 1ML IVPush PRN (19:43)
[2018-01-01] MEDS: ATORVASTATIN 20 MG TABLET PO SCH (19:43)
[2018-01-01] MEDS: MORPHINE SULFATE 4 MG/ML, 1ML IVPush PRN (20:42)
[2018-01-02 01:56] VITALS: BP 153/68
[2018-01-02] MEDS: SODIUM CHLORIDE 0.9% 1,000 ML IV SCH (02:30)
[2018-01-02] MEDS: ASPIRIN 81 MG TABLET EC PO SCH (05:39)
[2018-01-02] MEDS: INSULIN LISPRO 100 UNITS/ML, PEN SQ-INSULIN SCH ×4 (07:00→20:04)
[2018-01-02 08:00] VITALS: BP 116/75
[2018-01-02] MEDS: ENOXAPARIN 30 MG/0.3 ML SQ SCH (09:00)
[2018-01-02] MEDS: AZITHROMYCIN 500 MG in SODIUM CHLORIDE 0.9% 250 ML IV SCH (10:37)
[2018-01-02] MEDS: FERROUS SULFATE 325 MG TABLET PO SCH ×3 (10:38→17:53)
[2018-01-02 14:03] VITALS: BP_SYST 106; BP_SYST 154; BP_DIAS 62; BP_DIAS 75
[2018-01-02] MEDS: CEFTRIAXONE PMX 1GM/50ML 50 ML IV SCH (16:31)
[2018-01-02 19:16] VITALS: BP 177/80
[2018-01-02] MEDS: ATORVASTATIN 20 MG TABLET PO SCH (20:06)
[2018-01-03 02:12] VITALS: BP 172/90
[2018-01-03] MEDS: hydrALAzine 20 MG/ML, 1ML IVPush PRN (02:45)
[2018-01-03] MEDS: ASPIRIN 81 MG TABLET EC PO SCH (05:24)
[2018-01-03 05:49] LABS: CALCIUM 7.9 mg/dL (8.5-10.1); CHLORIDE 113 mmol/L (98-107)
[2018-01-03 05:59] LABS: ALANINE AMINOTRANSFERASE 9 U/L (12-78); ALBUMIN 1.6 g/dL (3.4-5.0); ALKALINE PHOSPHATASE 79 U/L (45-117); ANION GAP 15 mmol/L (5-15); BILIRUBIN,TOTAL 0.4 mg/dL (0.2-1.0); CREATININE 1.77 mg/dL (0.55-1.02); TOTAL PROTEIN 5.6 g/dL (6.4-8.2)
[2018-01-03 06:21] LABS: BASOPHILS # (AUTO) 0.01 x10^3/uL (0-0.1); BASOPHILS % (AUTO) 0 % (0-1); EOSINOPHILS # (AUTO) 0.11 x10^3/uL (0-0.4); EOSINOPHILS % (AUTO) 2 % (1-7); LYMPHOCYTES # (AUTO) 0.48 x10^3/uL (1-3.4); LYMPHOCYTES % (AUTO) 8 % (22-44); MD NO; MEAN CORPUSCULAR HEMOGLOBIN 28.8 pg (27.0-34.8); MEAN CORPUSCULAR HGB CONC 33.2 g/dL (32.4-35.8); MEAN CORPUSCULAR VOLUME 86.6 fL (80-100); MEAN PLATELET VOLUME 6.5 fL (7.4-10.4); MONOCYTES # (AUTO) 0.25 x10^3/uL (0.2-0.8); MONOCYTES % (AUTO) 4 % (2-9); NEUTROPHILS # (AUTO) 4.92 x10^3/uL (1.8-6.8); NEUTROPHILS % (AUTO) 85 % (42-75); PLATELET COUNT 173 x10^3/uL (130-400); RED CELL DISTRIBUTION WIDTH 13.8 % (9.6-15.2)
[2018-01-03] MEDS: INSULIN LISPRO 100 UNITS/ML, PEN SQ-INSULIN SCH ×4 (07:00→21:00)
[2018-01-03 07:33] VITALS: BP 147/75
[2018-01-03] MEDS: FERROUS SULFATE 325 MG TABLET PO SCH ×3 (08:00→16:31)
[2018-01-03] MEDS: ENOXAPARIN 30 MG/0.3 ML SQ SCH (09:00)
[2018-01-03] MEDS: AZITHROMYCIN 500 MG in SODIUM CHLORIDE 0.9% 250 ML IV SCH (10:23)
[2018-01-03 12:27] VITALS: BP 149/73
[2018-01-03] MEDS: ONDANSETRON 2MG/ML, 2ML IVPush PRN (14:01)
[2018-01-03] MEDS: CEFTRIAXONE PMX 1GM/50ML 50 ML IV SCH (16:39)
[2018-01-03 20:00] VITALS: BP 140/60
[2018-01-03] MEDS: ATORVASTATIN 20 MG TABLET PO SCH (21:10)
[2018-01-04 01:59] LABS: TROPONIN I 0.016 ng/mL (0.000-0.045)
[2018-01-04] MEDS ORDERED: FUROSEMIDE 40 MG/4 ML IV STA (02:17)
[2018-01-04 02:27] VITALS: BP 116/65
[2018-01-04] MEDS ORDERED: ASPIRIN 81 MG TABLET CHEW PO SCH (06:00)
[2018-01-04] MEDS: ASPIRIN 81 MG TABLET CHEW PO SCH (06:17)
[2018-01-04] MEDS: FERROUS SULFATE 325 MG TABLET PO SCH ×2 (08:00→12:00)
[2018-01-04 08:15] VITALS: BP 124/66
[2018-01-04] MEDS ORDERED: VANCOMYCIN PER PHARMACY MC PRN (08:30)
[2018-01-04] MEDS ORDERED: PHARMACOKINETIC CONSULTATION MC ONE (09:00)
[2018-01-04] MEDS ORDERED: PHARMACOKINETIC MONITORING MC PRN (09:00)
[2018-01-04] MEDS: ENOXAPARIN 30 MG/0.3 ML SQ SCH (09:01)
[2018-01-04] MEDS: PIPERACILLIN/TAZO/PMX 4.5GM 100 ML IV SCH ×3 (09:01→20:28)
[2018-01-04] MEDS: INSULIN LISPRO 100 UNITS/ML, PEN SQ-INSULIN SCH ×4 (09:02→21:00)
[2018-01-04] MEDS: VANCOMYCIN 1,200 MG in SODIUM CHLORIDE 0.9% 250 ML IV SCH (10:52)
[2018-01-04 12:25] VITALS: BP 127/69
[2018-01-04] MEDS: FERROUS SULFATE 220 MG/5 ML ORAL SOL PO SCH ×2 (12:45→17:47)
[2018-01-04] MEDS ORDERED: FUROSEMIDE 40 MG/4 ML IV ONE (14:00)
[2018-01-04 20:00] VITALS: BP 145/72
[2018-01-04] MEDS: ATORVASTATIN 20 MG TABLET PO SCH (20:28)
[2018-01-05] VITALS (12 sets, daily range): BP systolic 131–171; BP diastolic 70–86
[2018-01-05] MEDS: PIPERACILLIN/TAZO/PMX 4.5GM 100 ML IV SCH ×3 (02:35→15:09)
[2018-01-05] MEDS: ASPIRIN 81 MG TABLET CHEW PO SCH (05:49)
[2018-01-05 08:11] LABS: ALBUMIN 1.5 g/dL (3.4-5.0); ANION GAP 10 mmol/L (5-15); CALCIUM 8.1 mg/dL (8.5-10.1); CHLORIDE 114 mmol/L (98-107); MEAN CORPUSCULAR HEMOGLOBIN 28.8 pg (27.0-34.8); MEAN CORPUSCULAR HGB CONC 34.3 g/dL (32.4-35.8); MEAN CORPUSCULAR VOLUME 83.9 fL (80-100); MEAN PLATELET VOLUME 6.5 fL (7.4-10.4); PLATELET COUNT 231 x10^3/uL (130-400); RED BLOOD COUNT 2.06 x10^6/uL (3.82-5.3); RED CELL DISTRIBUTION WIDTH 13.8 % (9.6-15.2)
[2018-01-05 08:14] LABS: ALANINE AMINOTRANSFERASE 8 U/L (12-78); ALKALINE PHOSPHATASE 70 U/L (45-117); BILIRUBIN,TOTAL 0.6 mg/dL (0.2-1.0); CREATININE 2.38 mg/dL (0.55-1.02); TOTAL PROTEIN 5.8 g/dL (6.4-8.2)
[2018-01-05 08:25] LABS: BASOPHILS # (AUTO) 0.02 x10^3/uL (0-0.1); BASOPHILS % (AUTO) 1 % (0-1); EOSINOPHILS # (AUTO) 0.03 x10^3/uL (0-0.4); EOSINOPHILS % (AUTO) 1 % (1-7); LYMPHOCYTES % (AUTO) 12 % (22-44); MD SCAN; MONOCYTES # (AUTO) 0.19 x10^3/uL (0.2-0.8); MONOCYTES % (AUTO) 5 % (2-9); NEUTROPHILS # (AUTO) 3.34 x10^3/uL (1.8-6.8); NEUTROPHILS % (AUTO) 82 % (42-75)
[2018-01-05] MEDS: FERROUS SULFATE 220 MG/5 ML ORAL SOL PO SCH ×3 (08:30→16:47)
[2018-01-05] MEDS: ENOXAPARIN 30 MG/0.3 ML SQ SCH (08:30)
[2018-01-05] MEDS: INSULIN LISPRO 100 UNITS/ML, PEN SQ-INSULIN SCH ×4 (08:30→21:27)
[2018-01-05 13:40] LABS: OCCULT BLOOD NEGATIVE (NEGATIVE)
[2018-01-05] MEDS ORDERED: FUROSEMIDE 40 MG/4 ML IV ONE ×2 (14:00→23:30)
[2018-01-05] MEDS: LORazepam 2 MG/ML, 1ML IVPush PRN (14:29)
[2018-01-05] MEDS: ATORVASTATIN 20 MG TABLET PO SCH (21:00)
[2018-01-05] MEDS: PIPERACILLIN/TAZO/PMX 2.25GM 50 ML IVPB SCH (21:27)
[2018-01-05 22:21] LABS: O2 FLOW 45 L/min
[2018-01-06 02:33] VITALS: BP 136/80
[2018-01-06] MEDS: ASPIRIN 81 MG TABLET CHEW PO SCH (03:01)
[2018-01-06] MEDS: PIPERACILLIN/TAZO/PMX 2.25GM 50 ML IVPB SCH ×4 (03:57→23:49)
[2018-01-06 06:30] VITALS: BP 170/69
[2018-01-06] MEDS: INSULIN LISPRO 100 UNITS/ML, PEN SQ-INSULIN SCH ×4 (07:39→21:00)
[2018-01-06] MEDS: FERROUS SULFATE 220 MG/5 ML ORAL SOL PO SCH ×4 (07:39→16:34)
[2018-01-06] MEDS: ENOXAPARIN 30 MG/0.3 ML SQ SCH (07:39)
[2018-01-06] MEDS: VANCOMYCIN 1,200 MG in SODIUM CHLORIDE 0.9% 250 ML IV SCH (08:50)
[2018-01-06] MEDS ORDERED: FUROSEMIDE 100 MG/10 ML IV ONE (10:30)
[2018-01-06 12:25] VITALS: BP 169/81
[2018-01-06 17:18] LABS: CREATININE,URINE RANDOM 13.1 mg/dL
[2018-01-06] MEDS: ATORVASTATIN 20 MG TABLET PO SCH (19:40)
[2018-01-06 19:46] VITALS: BP 153/84
[2018-01-06] MEDS ORDERED: MAGNESIUM SULFATE PMX 2GM/50ML 50 ML IV ONE (21:00)
[2018-01-06] MEDS ORDERED: POTASSIUM CHLORIDE 40 MEQ in SODIUM CHLORIDE 0.9% 500 ML IV ONE (21:00)
[2018-01-07] MEDS: ASPIRIN 81 MG TABLET CHEW PO SCH (00:49)
[2018-01-07 01:45] VITALS: BP 165/85
[2018-01-07 05:22] LABS: BASOPHILS % (AUTO) 0 % (0-1); EOSINOPHILS # (AUTO) 0.01 x10^3/uL (0-0.4); EOSINOPHILS % (AUTO) 0 % (1-7); LYMPHOCYTES # (AUTO) 0.35 x10^3/uL (1-3.4); LYMPHOCYTES % (AUTO) 6 % (22-44); MD NO; MEAN CORPUSCULAR VOLUME 82.5 fL (80-100); MEAN PLATELET VOLUME 6.7 fL (7.4-10.4); MONOCYTES # (AUTO) 0.19 x10^3/uL (0.2-0.8); MONOCYTES % (AUTO) 3 % (2-9); NEUTROPHILS # (AUTO) 5.73 x10^3/uL (1.8-6.8); NEUTROPHILS % (AUTO) 91 % (42-75); PLATELET COUNT 152 x10^3/uL (130-400); RED CELL DISTRIBUTION WIDTH 16.3 % (9.6-15.2)
[2018-01-07 05:27] LABS: CHLORIDE 115 mmol/L (98-107)
[2018-01-07 05:35] LABS: ALANINE AMINOTRANSFERASE 9 U/L (12-78); ALBUMIN 1.5 g/dL (3.4-5.0); ALKALINE PHOSPHATASE 64 U/L (45-117); ANION GAP 15 mmol/L (5-15); CALCIUM 8.2 mg/dL (8.5-10.1); CREATININE 2.98 mg/dL (0.55-1.02); TOTAL PROTEIN 6.1 g/dL (6.4-8.2)
[2018-01-07] MEDS: PIPERACILLIN/TAZO/PMX 2.25GM 50 ML IVPB SCH ×3 (05:56→18:53)
[2018-01-07 06:58] VITALS: BP 176/79
[2018-01-07] MEDS: FERROUS SULFATE 220 MG/5 ML ORAL SOL PO SCH ×3 (08:00→17:00)
[2018-01-07] MEDS ORDERED: SODIUM CHLORIDE 0.9% 1,000 ML IV SCH (09:30)
[2018-01-07] MEDS ORDERED: SODIUM CHLORIDE 0.45% 1,000 ML IV SCH (09:30)
[2018-01-07] MEDS: ENOXAPARIN 30 MG/0.3 ML SQ SCH (09:35)
[2018-01-07] MEDS: INSULIN LISPRO 100 UNITS/ML, PEN SQ-INSULIN SCH ×4 (09:35→21:00)
[2018-01-07] MEDS: MORPHINE SULFATE 4 MG/ML, 1ML IVPush PRN ×2 (11:00→17:02)
[2018-01-07 14:23] VITALS: BP 161/79
[2018-01-07 18:24] VITALS: BP 155/67
[2018-01-07] MEDS: SODIUM BICARB IV SCH (18:44)
[2018-01-07] MEDS: [UNRECOGNIZED DRUG - OTHER] IV SCH (18:44)
[2018-01-07] MEDS: POTASSIUM CHLORIDE IV SCH (18:44)
[2018-01-07] MEDS: ATORVASTATIN 20 MG TABLET PO SCH (21:00)
[2018-01-08] MEDS: PIPERACILLIN/TAZO/PMX 2.25GM 50 ML IVPB SCH ×4 (00:16→18:09)
[2018-01-08 01:56] VITALS: BP 179/78
[2018-01-08] MEDS: hydrALAzine 20 MG/ML, 1ML IVPush PRN (02:05)
[2018-01-08 02:20] VITALS: BP 162/73
[2018-01-08] MEDS: ASPIRIN 81 MG TABLET CHEW PO SCH (05:30)
[2018-01-08 05:44] LABS: ALBUMIN 1.5 g/dL (3.4-5.0); ANION GAP 13 mmol/L (5-15); CALCIUM 7.7 mg/dL (8.5-10.1); CHLORIDE 114 mmol/L (98-107)
[2018-01-08 05:49] LABS: ALANINE AMINOTRANSFERASE 8 U/L (12-78); ALKALINE PHOSPHATASE 56 U/L (45-117); BILIRUBIN,TOTAL 1.2 mg/dL (0.2-1.0); CREATININE 3.13 mg/dL (0.55-1.02); TOTAL PROTEIN 5.9 g/dL (6.4-8.2)
[2018-01-08 06:01] LABS: MEAN CORPUSCULAR HEMOGLOBIN 27.7 pg (27.0-34.8); MEAN CORPUSCULAR HGB CONC 33.6 g/dL (32.4-35.8); MEAN CORPUSCULAR VOLUME 82.3 fL (80-100); MEAN PLATELET VOLUME 6.8 fL (7.4-10.4); PLATELET COUNT 131 x10^3/uL (130-400); RED CELL DISTRIBUTION WIDTH 16.5 % (9.6-15.2)
[2018-01-08 06:29] LABS: BASOPHILS # (AUTO) 0.01 x10^3/uL (0-0.1); BASOPHILS % (AUTO) 0 % (0-1); EOSINOPHILS # (AUTO) 0.08 x10^3/uL (0-0.4); EOSINOPHILS % (AUTO) 1 % (1-7); LYMPHOCYTES # (AUTO) 0.47 x10^3/uL (1-3.4); LYMPHOCYTES % (AUTO) 6 % (22-44); MD SCAN; MONOCYTES # (AUTO) 0.25 x10^3/uL (0.2-0.8); MONOCYTES % (AUTO) 3 % (2-9); NEUTROPHILS # (AUTO) 6.95 x10^3/uL (1.8-6.8); NEUTROPHILS % (AUTO) 90 % (42-75)
[2018-01-08 07:00] VITALS: BP 168/84
[2018-01-08] MEDS ORDERED: POTASSIUM CHLORIDE 40 MEQ in SODIUM CHLORIDE 0.9% 500 ML IV ONE (08:30)
[2018-01-08] MEDS: FERROUS SULFATE 220 MG/5 ML ORAL SOL PO SCH ×3 (10:21→17:57)
[2018-01-08] MEDS: INSULIN LISPRO 100 UNITS/ML, PEN SQ-INSULIN SCH ×4 (10:22→22:40)
[2018-01-08] MEDS: MORPHINE SULFATE 4 MG/ML, 1ML IVPush PRN ×3 (10:22→23:08)
[2018-01-08] MEDS: ENOXAPARIN 30 MG/0.3 ML SQ SCH (10:23)
[2018-01-08 12:30] VITALS: BP 154/84
[2018-01-08] MEDS: POTASSIUM CHLORIDE IV SCH (17:56)
[2018-01-08] MEDS: SODIUM BICARB IV SCH (17:56)
[2018-01-08] MEDS: [UNRECOGNIZED DRUG - OTHER] IV SCH (17:56)
[2018-01-08 18:44] VITALS: BP 159/81
[2018-01-08] MEDS: ATORVASTATIN 20 MG TABLET PO SCH (22:40)
[2018-01-09] MEDS: PIPERACILLIN/TAZO/PMX 2.25GM 50 ML IVPB SCH ×3 (00:35→13:42)
[2018-01-09 02:00] VITALS: BP 170/81
[2018-01-09] MEDS: MORPHINE SULFATE 4 MG/ML, 1ML IVPush PRN ×3 (02:45→11:43)
[2018-01-09 04:15] VITALS: BP 157/80
[2018-01-09 05:29] LABS: CALCIUM 7.8 mg/dL (8.5-10.1); CHLORIDE 114 mmol/L (98-107)
[2018-01-09 05:33] LABS: ANION GAP 13 mmol/L (5-15); CREATININE 3.29 mg/dL (0.55-1.02)
[2018-01-09] MEDS: ASPIRIN 81 MG TABLET CHEW PO SCH (06:11)
[2018-01-09] MEDS: FERROUS SULFATE 220 MG/5 ML ORAL SOL PO SCH ×3 (08:00→17:00)
[2018-01-09] MEDS ORDERED: LORazepam 2 MG/ML, 1ML IVPush PRN (09:30)
[2018-01-09] MEDS: ENOXAPARIN 30 MG/0.3 ML SQ SCH (11:20)
[2018-01-09 11:37] VITALS: BP 149/74
[2018-01-09] MEDS: ONDANSETRON 2MG/ML, 2ML IVPush PRN (11:43)
[2018-01-09 13:20] VITALS: BP 135/73
[2018-01-09 18:42] VITALS: BP 97/57
[2018-01-09] MEDS: ATORVASTATIN 20 MG TABLET PO SCH (21:15)
[2018-01-10 01:08] VITALS: BP 94/50
== END 2018-01-10 04:42 | disposition expired | DRG 682 ==
LOC: ED 12:13 → EDIP 12:14 → ED 12:18 → 4EST 17:41
PROVIDERS: ADMIT Hospitalist; ATTEND Internal Medicine
PROC: 0W9B3ZZ Drainage of Left Pleural Cavity, Percutaneous Approach (ICD-10-PCS; principal; 2017-12-31)
PROC: 30233N1 Transfusion of Nonautologous Red Blood Cells into Peripheral Vein, Percutaneous Approach (ICD-10-PCS; 2018-01-05)
DX: N17.0 Acute kidney failure with tubular necrosis (principal); I63.9 Cerebral infarction, unspecified; E43 Unspecified severe protein-calorie malnutrition; G93.40 Encephalopathy, unspecified; J96.01 Acute respiratory failure with hypoxia; J18.9 Pneumonia, unspecified organism; E87.2 Acidosis; N39.0 Urinary tract infection, site not specified; I50.32 Chronic diastolic (congestive) heart failure; I13.0 Hypertensive heart and chronic kidney disease with heart failure and stage 1 through stage 4 chronic kidney disease, or unspecified chronic kidney disease; E87.0 Hyperosmolality and hypernatremia; R91.1 Solitary pulmonary nodule; F43.10 Post-traumatic stress disorder, unspecified; D50.9 Iron deficiency anemia, unspecified; B96.20 Unspecified Escherichia coli [E. coli] as the cause of diseases classified elsewhere; B96.89 Other specified bacterial agents as the cause of diseases classified elsewhere; E11.22 Type 2 diabetes mellitus with diabetic chronic kidney disease; I25.10 Atherosclerotic heart disease of native coronary artery without angina pectoris; I25.2 Old myocardial infarction; I46.9 Cardiac arrest, cause unspecified; K21.9 Gastro-esophageal reflux disease without esophagitis; N18.9 Chronic kidney disease, unspecified; K59.00 Constipation, unspecified; R62.7 Adult failure to thrive; Z51.5 Encounter for palliative care; K80.20 Calculus of gallbladder without cholecystitis without obstruction; Z66 Do not resuscitate; R29.810 Facial weakness; I07.1 Rheumatic tricuspid insufficiency; R13.10 Dysphagia, unspecified; Z60.2 Problems related to living alone; Z85.3 Personal history of malignant neoplasm of breast; Z87.01 Personal history of pneumonia (recurrent); Z90.49 Acquired absence of other specified parts of digestive tract; Z90.89 Acquired absence of other organs; Z68.23 Body mass index [BMI] 23.0-23.9, adult
CPT/HCPCS: 32555; 36415; 36600; 70553; 71045; 71250; 74018; 76700; 78452; 80048; 80053; 80061; 80202; 81001; 82272; 82570; 82803; 82962; 83036; 83540; 83550; 83615; 83690; 83735; 83880; 84100; 84132; 84155; 84156; 84157; 84300; 84439; 84443; 84484; 85014; 85018; 85025; 86850; 86900; 86923; 87040; 87070; 87077; 87086; 87186; 87205; 88112; 88305; 88341; 88342; 93005; 93017; 93306; 93880; 96361; 96374; 96376; J0456; J0696; J1650; J1940; J2405; J2543; J2785; J3370; J3480; J3490; Q0162; 92523-GN; A9502; C9898; G0461; J0360; J1815; J2060; J3475; J7030; J7040; J7050; P9016